=== PATIENT | male | born 1970 | race Caucasian/White ===

== ENCOUNTER 2023-02-14 15:01 | Emergency (ER) | payer OTHER ==
[~2023-02-14] VITALS: Ht 182.9 cm; Wt 83.9 kg
[2023-02-14 15:38] VITALS: BP 140/85
[2023-02-14 15:45] VITALS: BP 135/85
[2023-02-14] MEDS ORDERED: KEFLEX500 MG PO (15:57)
[2023-02-14 16:00] VITALS: BP 128/85
[2023-02-14 16:07] VITALS: BP 128/85
== END 2023-02-14 16:26 | disposition designated cancer center or children's hospital (05) | DRG 605 ==
LOC: ED 15:01
PROC: 0HQGXZZ Repair Left Hand Skin, External Approach (ICD-10-PCS; principal; 2023-02-14)
DX: S61.412A Laceration without foreign body of left hand, initial encounter (principal); W26.8XXA Contact with other sharp object(s), not elsewhere classified, initial encounter